=== PATIENT | female | born 1980 | race Hispanic/Latino ===

== ENCOUNTER 2019-03-18 19:35 | Emergency (ER) | payer SELFPAY ==
[2019-03-18] MEDS ORDERED: ASPIRIN 325 MG TABLET ONE (20:04)
[2019-03-18] MEDS ORDERED: NITROGLYCERIN 0.4 MG SL TAB SL ONE (20:05)
[2019-03-18 20:17] LABS: HCG,QUAL RESULT NEGATIVE (NEGATIVE)
[2019-03-18 20:18] LABS: AMPHET/METH SCREEN,URINE NEGATIVE (NEGATIVE); BARBITURATE SCREEN, URINE NEGATIVE (NEGATIVE); BENZODIAZEPINES SCREEN,URINE NEGATIVE (NEGATIVE); CANNABINOID SCREEN,URINE NEGATIVE (NEGATIVE); COCAINE SCREEN,URINE NEGATIVE (NEGATIVE); OPIATE SCREEN,URINE NEGATIVE (NEGATIVE); PHENCYCLIDINE SCREEN,URINE NEGATIVE (NEGATIVE)
[2019-03-18 20:25] LABS: BASOPHILS % (AUTO) 0.9 % (0.0-5.0); EOSINOPHILS % (AUTO) 2.5 % (0.0-8.0); LYMPHOCYTES % (AUTO) 37.8 % (21.0-51.0); MEAN CORPUSCULAR HEMOGLOBIN 26.6 pg (27.0-33.0); MEAN CORPUSCULAR HGB CONC 32.5 g/dL (32.0-36.0); MEAN CORPUSCULAR VOLUME 81.7 fL (79-99); MONOCYTES % (AUTO) 6.9 % (3.0-13.0); NEUTROPHILS % (AUTO) 51.9 % (40.0-77.0); PLATELET COUNT (AUTO) 344 K/uL (130-400); RED BLOOD CELL COUNT(AUTO) 4.65 MIL/uL (4.00-5.50); RED CELL DISTRIBUTION WIDTH 14.7 % (11.0-15.5)
[2019-03-18 20:39] LABS: CREATININE 0.8 mg/dL (0.5-1.5); POTASSIUM 3.8 mmol/L (3.5-5.1)
[2019-03-18 20:43] LABS: INR 0.89 (0.85-1.15); PROTHROMBIN TIME 9.4 SEC (9.6-11.6)
[2019-03-18 20:44] LABS: ALBUMIN 3.6 g/dL (3.5-5.0); BILIRUBIN,TOTAL 0.6 mg/dL (0.2-1.0); TOTAL PROTEIN, SERUM 8.1 g/dL (6.0-8.3)
== END 2019-03-18 23:00 ==
LOC: EDH 19:35
DX: R07.89 Other chest pain (principal); E66.9 Obesity, unspecified; Z98.890 Other specified postprocedural states
CPT/HCPCS: 36415; 71045; 80053; 80305; 81025; 82550; 83880; 84484; 85025; 85378; 85610; 85730; 93005

== ENCOUNTER 2021-09-18 13:20 | Observation (INO) | payer OTHER ==
[~2021-09-18] VITALS: Ht 162.6 cm; Wt 115.9 kg
[2021-09-18 13:50] LABS: BASOPHILS % (AUTO) 0.6 % (0.0-5.0); EOSINOPHILS % (AUTO) 3.2 % (0.0-8.0); HEMATOCRIT 42.3 % (36-48); LYMPHOCYTES % (AUTO) 35.9 % (21.0-51.0); MEAN CORPUSCULAR HEMOGLOBIN 26.4 pg (27.0-33.0); MEAN CORPUSCULAR HGB CONC 31.7 g/dL (32.0-36.0); MEAN CORPUSCULAR VOLUME 83.3 fL (79-99); MONOCYTES % (AUTO) 7.3 % (3.0-13.0); NEUTROPHILS % (AUTO) 52.5 % (40.0-77.0); PLATELET COUNT (AUTO) 363 K/uL (130-400); RED BLOOD CELL COUNT(AUTO) 5.08 MIL/uL (4.00-5.50); RED CELL DISTRIBUTION WIDTH 15.9 % (11.0-15.5); WHITE BLOOD COUNT (AUTO) 10.8 K/uL (4.8-10.8)
[2021-09-18 13:59] LABS: CREATININE 0.6 mg/dL (0.5-1.5); POTASSIUM 4.3 mmol/L (3.5-5.1)
[2021-09-18 14:03] LABS: ALBUMIN 3.7 g/dL (3.5-5.0); BILIRUBIN,TOTAL 0.9 mg/dL (0.2-1.0)
[2021-09-18 14:04] LABS: AMPHET/METH SCREEN,URINE NEGATIVE (NEGATIVE); BARBITURATE SCREEN, URINE NEGATIVE (NEGATIVE); BENZODIAZEPINES SCREEN,URINE NEGATIVE (NEGATIVE); CANNABINOID SCREEN,URINE NEGATIVE (NEGATIVE); COCAINE SCREEN,URINE NEGATIVE (NEGATIVE); OPIATE SCREEN,URINE NEGATIVE (NEGATIVE); PHENCYCLIDINE SCREEN,URINE NEGATIVE (NEGATIVE)
[2021-09-18 14:11] LABS: HCG,QUAL RESULT NEGATIVE (NEGATIVE)
[2021-09-18] MEDS ORDERED: NITROGLYCERIN 1GM OINT 1 INCH/1GM TD ONE ×2 (14:50→15:00)
[2021-09-18] MEDS ORDERED: ASPIRIN 81MG CHEW TAB ONE (14:50)
[2021-09-18] MEDS ORDERED: KETOROLAC 15MG/ML VIAL (15MG/ML) ONE (14:50)
[2021-09-18] MEDS ORDERED: ASPIRIN 81MG CHEW TAB PO ONE (15:00)
[2021-09-18] MEDS ORDERED: KETOROLAC 15MG/ML VIAL (15MG/ML) IV ONE (15:00)
[2021-09-18] MEDS ORDERED: 0.9%NACL 1000ML 1,000 ML IV ONE (15:00)
[2021-09-18] MEDS ORDERED: IOHEXOL-350 75 ML VIAL IV ONE (15:30)
[2021-09-18] MEDS ORDERED: ACETAMINOPHEN 325 MG TAB ONE (19:54)
[2021-09-18] MEDS ORDERED: METOPROLOL TARTRATE 25 MG TAB ONE (19:54)
[2021-09-18] MEDS ORDERED: ACETAMINOPHEN 325 MG TAB PO PRN (20:00)
[2021-09-18] MEDS: METOPROLOL TARTRATE 25 MG TAB PO SCH (21:00)
[2021-09-18] MEDS: ENOXAPARIN SODIUM 120 MG/0.8ML SQ SCH (22:08)
[2021-09-19 03:35] VITALS: BP 142/90
[2021-09-19] MEDS ORDERED: METF-444 PO (03:51)
[2021-09-19] MEDS ORDERED: GEMF600T89 PO (03:51)
[2021-09-19 07:00] VITALS: BP 137/67
[2021-09-19 07:57] LABS: BASOPHILS % (AUTO) 0.4 % (0.0-5.0); EOSINOPHILS % (AUTO) 3.3 % (0.0-8.0); HEMATOCRIT 34.8 % (36-48); LYMPHOCYTES % (AUTO) 23.6 % (21.0-51.0); MEAN CORPUSCULAR HGB CONC 30.5 g/dL (32.0-36.0); MEAN CORPUSCULAR VOLUME 85.5 fL (79-99); MONOCYTES % (AUTO) 6.8 % (3.0-13.0); NEUTROPHILS % (AUTO) 65.4 % (40.0-77.0); PLATELET COUNT (AUTO) 281 K/uL (130-400); RED BLOOD CELL COUNT(AUTO) 4.07 MIL/uL (4.00-5.50); RED CELL DISTRIBUTION WIDTH 15.8 % (11.0-15.5); WHITE BLOOD COUNT (AUTO) 10.8 K/uL (4.8-10.8)
[2021-09-19 08:30] LABS: BILIRUBIN,TOTAL 0.7 mg/dL (0.2-1.0); CREATININE 0.7 mg/dL (0.5-1.5); TOTAL PROTEIN, SERUM 6.7 g/dL (6.0-8.3)
[2021-09-19] MEDS ORDERED: IOHEXOL 350 MG/ML 100ML INFUS..BTL IV ONE (09:45)
[2021-09-19] MEDS ORDERED: METOPROLOL TARTRATE 1 MG/ML 5ML VIAL IV ONE ×2 (10:27→10:35)
[2021-09-19 11:00] VITALS: BP 131/77
[2021-09-19] MEDS: METOPROLOL TARTRATE 25 MG TAB PO SCH ×2 (11:51→20:00)
[2021-09-19] MEDS: ASPIRIN 81 MG EC TAB PO SCH (11:52)
[2021-09-19] MEDS: ENOXAPARIN SODIUM 120 MG/0.8ML SQ SCH ×2 (11:52→20:01)
[2021-09-19] MEDS: CLOPIDOGREL 75MG TAB PO SCH (11:52)
[2021-09-19 16:00] VITALS: BP 140/94
[2021-09-19 19:46] VITALS: BP 131/86
[2021-09-19 23:31] VITALS: BP 125/77
[2021-09-20 03:27] VITALS: BP 125/72
[2021-09-20 03:46] LABS: CHOLESTEROL 132 mg/dL (<200); HDL CHOLESTEROL 29 mg/dL (35-85); LDL DIRECT 48 mg/dL (0-99); TRIGLYCERIDES 494 mg/dL (30-200)
[2021-09-20 08:19] VITALS: BP 126/75
[2021-09-20] MEDS: METOPROLOL TARTRATE 25 MG TAB PO SCH (09:33)
[2021-09-20] MEDS: CLOPIDOGREL 75MG TAB PO SCH (09:34)
[2021-09-20] MEDS: ASPIRIN 81 MG EC TAB PO SCH (09:34)
[2021-09-20] MEDS: ENOXAPARIN SODIUM 120 MG/0.8ML SQ SCH (09:34)
== END 2021-09-20 10:50 | disposition home or self-care (01) ==
LOC: EDH 13:20 → EDHIP 16:51 → 4CH 09-19 03:25
PROVIDERS: ADMIT Internal Medicine; ATTEND Internal Medicine
DX: I20.0 Unstable angina (principal); R07.89 Other chest pain; I16.0 Hypertensive urgency; I10 Essential (primary) hypertension; E11.9 Type 2 diabetes mellitus without complications; E78.5 Hyperlipidemia, unspecified; Z90.49 Acquired absence of other specified parts of digestive tract; Z98.891 History of uterine scar from previous surgery; Z79.899 Other long term (current) drug therapy; Z98.890 Other specified postprocedural states; Z79.82 Long term (current) use of aspirin
CPT/HCPCS: 36415 ×3; 71045; 71275; 75574; 80053 ×2; 80061; 80305; 81025; 82550 ×3; 83874 ×3; 84484 ×4; 85025 ×2; 85378; 93005; 96360; 96372 ×3; 99291; G0378 ×42; J1650 ×4; J1885; J3490 ×2; Q9967 ×2

== ENCOUNTER 2021-12-09 23:36 | Emergency (ER) | payer OTHER ==
[~2021-12-09] VITALS: Ht 162.6 cm; Wt 108.0 kg
[~2021-12-09 23:36] MED LIST: GEMF600T89 PO; METF-444 PO
[2021-12-10 00:11] LABS: BASOPHILS % (AUTO) 0.3 % (0.0-5.0); EOSINOPHILS % (AUTO) 2.6 % (0.0-8.0); HEMATOCRIT 38.2 % (36-48); LYMPHOCYTES % (AUTO) 29.7 % (21.0-51.0); MEAN CORPUSCULAR HEMOGLOBIN 25.5 pg (27.0-33.0); MEAN CORPUSCULAR HGB CONC 31.4 g/dL (32.0-36.0); MEAN CORPUSCULAR VOLUME 81.3 fL (79-99); MONOCYTES % (AUTO) 6.1 % (3.0-13.0); PLATELET COUNT (AUTO) 331 K/uL (130-400); WHITE BLOOD COUNT (AUTO) 10.9 K/uL (4.8-10.8)
[2021-12-10 00:18] LABS: CREATININE 0.8 mg/dL (0.5-1.5); POTASSIUM 4.2 mmol/L (3.5-5.1)
[2021-12-10 00:24] LABS: APPEARANCE,URINE CLEAR (CLEAR); BILIRUBIN,URINE NEGATIVE (NEGATIVE); COLOR,URINE YELLOW (YELLOW); GLUCOSE, URINE (UA) NEGATIVE (NEGATIVE); KETONES,URINE NEGATIVE (NEGATIVE); LEUKOCYTE ESTERASE ,URINE NEGATIVE (NEGATIVE); NITRATE,URINE NEGATIVE (NEGATIVE); OCCULT BLOOD,URINE TRACE-INTACT (NEGATIVE); PROTEIN,URINE NEGATIVE (NEGATIVE); UROBILINOGEN,URINE 0.2 mg/dL (0.2-1.0)
[2021-12-10 00:25] LABS: ALBUMIN 3.5 g/dL (3.5-5.0)
[2021-12-10] MEDS ORDERED: KETOROLAC 15MG/ML VIAL (15MG/ML) IV ONE (00:30)
[2021-12-10] MEDS ORDERED: MORPHINE 2 MG SYG IVP ONE (00:30)
[2021-12-10] MEDS ORDERED: ONDANSETRON 4MG INJ IVP ONE (00:30)
[2021-12-10 01:01] LABS: BACTERIA,URINE None Seen /HPF (None Seen); RBC,URINE 0-1 /HPF (0-1); SQUAMOUS EPITHELIAL CELL,UR Rare /HPF (0-2); WBC,URINE None Seen /HPF (0-1)
[2021-12-10 01:10] VITALS: BP 153/83
[2021-12-10] MEDS ORDERED: IBUP-2070 PO (02:31)
[2021-12-10] MEDS ORDERED: ACET-2079 PO (02:31)
== END 2021-12-10 02:50 | disposition home or self-care (01) ==
LOC: EDH 23:36
DX: N83.202 Unspecified ovarian cyst, left side (principal); E11.9 Type 2 diabetes mellitus without complications; I10 Essential (primary) hypertension; Z79.1 Long term (current) use of non-steroidal anti-inflammatories (NSAID); Z79.84 Long term (current) use of oral hypoglycemic drugs; Z90.49 Acquired absence of other specified parts of digestive tract
CPT/HCPCS: 99284; 84484; 80053; 83690; 85025; 81001; 36415; 74176; 96374; 76830; 96375; J2405; J1885

== ENCOUNTER 2021-12-20 06:19 | Day surgery (SDC) | payer OTHER ==
[2021-12-15 09:56] LABS: BASOPHILS % (AUTO) 0.4 % (0.0-5.0); EOSINOPHILS % (AUTO) 2.9 % (0.0-8.0); HEMATOCRIT 37.8 % (36-48); LYMPHOCYTES % (AUTO) 34.8 % (21.0-51.0); MEAN CORPUSCULAR HEMOGLOBIN 25.2 pg (27.0-33.0); MEAN CORPUSCULAR HGB CONC 30.7 g/dL (32.0-36.0); MONOCYTES % (AUTO) 5.7 % (3.0-13.0); PLATELET COUNT (AUTO) 381 K/uL (130-400); RED BLOOD CELL COUNT(AUTO) 4.61 MIL/uL (4.00-5.50); RED CELL DISTRIBUTION WIDTH 14.3 % (11.0-15.5)
[2021-12-19 09:25] VITALS: BP 141/79
[2021-12-20] VITALS (19 sets, daily range): BP systolic 109–147; BP diastolic 62–82
[~2021-12-20] VITALS: Ht 162.6 cm; Wt 107.8 kg
[~2021-12-20 06:19] MED LIST changes: +CELE-84 PO; -GEMF600T89 PO; -METF-444 PO; +ROSU20TA23 PO; +SEMA1PEN3 SQ
[2021-12-20] MEDS ORDERED: DEXAMETHASONE SOD PHOSPHATE 4 MG/ML 5ML VIAL ONE (07:51)
[2021-12-20] MEDS ORDERED: 0.9%NACL 1000ML 1,000 ML IV ONE (07:51)
[2021-12-20] MEDS ORDERED: METRONIDAZOLE 500MG/100ML BAG 100 ML ONE (07:51)
[2021-12-20] MEDS ORDERED: SCOPOLAMINE HYDROBROMIDE 1 EACH ADH..PATCH TD ONE (07:51)
[2021-12-20] MEDS: CEFAZOLIN SODIUM 1 GM VIAL ONE ×2 (08:24→11:49)
[2021-12-20] MEDS ORDERED: ONDANSETRON 4MG INJ ONE ×2 (10:48→16:19)
[2021-12-20] MEDS ORDERED: PROPOFOL 10 MG/ML 20ML VIAL IV ONE (10:48)
[2021-12-20] MEDS ORDERED: MIDAZOLAM HCL 1 MG/ML 2ML VIAL ONE (10:49)
[2021-12-20] MEDS ORDERED: ROCURONIUM 10MG/1ML SYR 10 MG/ML ML ONE ×2 (10:49→11:46)
[2021-12-20] MEDS ORDERED: FENTANYL CITRATE PF 50 MCG/1 ML 2ML VIAL ONE ×2 (10:49→14:51)
[2021-12-20] MEDS ORDERED: BUPIVACAINE LIPOSOME/PF 266 MG/20 ML ML IJ SCH (11:00)
[2021-12-20] MEDS ORDERED: PHENYLEPHRINE HCL 10 MG/ML 1ML VIAL IV ONE (12:15)
[2021-12-20] MEDS ORDERED: EPHEDRINE SULFATE 50 MG/ML AMPULE ONE (12:16)
[2021-12-20] MEDS ORDERED: KETOROLAC 30MG VIAL (30MG/ML) ONE (14:46)
[2021-12-20] MEDS ORDERED: GLYCOPYRROLATE 1 MG/5 ML SYRINGE ONE (14:46)
[2021-12-20] MEDS ORDERED: NEOSTIGMINE 5MG/5ML SYR IV ONE (14:50)
[2021-12-20] MEDS ORDERED: MORPHINE 10MG VIAL ONE (16:19)
[2021-12-20] MEDS ORDERED: ACETAMINOPHEN 500 MG TABLET ONE (16:19)
== END 2021-12-20 18:00 | disposition home or self-care (01) ==
LOC: DAH 06:19
PROVIDERS: ATTEND Obstetrics & Gynecology
DX: R10.2 Pelvic and perineal pain (principal); D27.1 Benign neoplasm of left ovary; K66.0 Peritoneal adhesions (postprocedural) (postinfection); E66.01 Morbid (severe) obesity due to excess calories; E11.9 Type 2 diabetes mellitus without complications; E78.00 Pure hypercholesterolemia, unspecified; Z79.899 Other long term (current) drug therapy; Z79.01 Long term (current) use of anticoagulants; Z80.8 Family history of malignant neoplasm of other organs or systems; Z98.890 Other specified postprocedural states; Z98.891 History of uterine scar from previous surgery; Z90.49 Acquired absence of other specified parts of digestive tract; Z68.43 Body mass index [BMI] 50.0-59.9, adult
CPT/HCPCS: 58662; S2900; 36415; 82948; 84703; 85025; 86850; 86900; 86901; 87426; A4344; C9290; J0690; J1100; J1885; J2250; J2270; J2370; J2405; J2704; J2710; J3010; J3490; J7030; J7120

== ENCOUNTER 2022-09-19 18:16 | Emergency (ER) | payer OTHER ==
[~2022-09-19] VITALS: Ht 160 cm; Wt 104.8 kg
[~2022-09-19 18:16] MED LIST changes: -CELE-84 PO
[2022-09-19 19:01] LABS: BASOPHILS % (AUTO) 0.2 % (0.0-5.0); HEMATOCRIT 37.9 % (36-48); LYMPHOCYTES % (AUTO) 12.5 % (21.0-51.0); MEAN CORPUSCULAR HEMOGLOBIN 25.8 pg (27.0-33.0); MEAN CORPUSCULAR HGB CONC 31.4 g/dL (32.0-36.0); MEAN CORPUSCULAR VOLUME 82.2 fL (79-99); MONOCYTES % (AUTO) 0.7 % (3.0-13.0); NEUTROPHILS % (AUTO) 85.9 % (40.0-77.0); PLATELET COUNT (AUTO) 370 K/uL (130-400); RED BLOOD CELL COUNT(AUTO) 4.61 MIL/uL (4.00-5.50); RED CELL DISTRIBUTION WIDTH 14.6 % (11.0-15.5); WHITE BLOOD COUNT (AUTO) 12.1 K/uL (4.8-10.8)
[2022-09-19 19:13] LABS: CREATININE 0.7 mg/dL (0.5-1.5); POTASSIUM 4.2 mmol/L (3.5-5.1)
[2022-09-19 19:20] LABS: ALBUMIN 3.7 g/dL (3.5-5.0); TOTAL PROTEIN, SERUM 8.3 g/dL (6.0-8.3)
[2022-09-19 23:29] LABS: APPEARANCE,URINE CLEAR (CLEAR); BILIRUBIN,URINE NEGATIVE (NEGATIVE); COLOR,URINE LIGHT-YELLOW (YELLOW); GLUCOSE, URINE (UA) 300 mg/dL (NEGATIVE); KETONES,URINE 5 mg/dL (NEGATIVE); LEUKOCYTE ESTERASE ,URINE 250 Leu/uL (NEGATIVE); NITRATE,URINE NEGATIVE (NEGATIVE); OCCULT BLOOD,URINE MODERATE (NEGATIVE); PROTEIN,URINE NEGATIVE (NEGATIVE); UROBILINOGEN,URINE 0.2 mg/dL (0.2-1.0)
[2022-09-19 23:32] LABS: MUCUS,URINE RARE LPF (None Seen); SQUAMOUS EPITHELIAL CELL,UR MANY /HPF (0-2)
[2022-09-19 23:42] LABS: MAGNESIUM 2.1 mg/dL (1.80-2.40); THYROID STIMULATING HORMONE 0.49 uIU/mL (0.36-3.74)
[2022-09-20] MEDS ORDERED: CEFTRIAXONE 1G VIAL IVPB ONE
[2022-09-20 00:53] VITALS: BP 125/70
== END 2022-09-20 00:54 | disposition home or self-care (01) ==
LOC: EDH 18:16
DX: R07.89 Other chest pain (principal); R00.2 Palpitations; R03.0 Elevated blood-pressure reading, without diagnosis of hypertension; R06.02 Shortness of breath; E78.00 Pure hypercholesterolemia, unspecified; Z90.49 Acquired absence of other specified parts of digestive tract; Z90.722 Acquired absence of ovaries, bilateral; Z98.890 Other specified postprocedural states
CPT/HCPCS: 99285; 71045; 84443; 83735; 84484 ×2; 80053; 85025; 87088; 81001; 36415; 93005; 96365; J0696

== ENCOUNTER 2024-05-30 21:51 | Emergency (ER) | payer BC ==
[~2024-05-30] VITALS: Ht 162.6 cm; Wt 102.1 kg
[~2024-05-30 21:51] MED LIST changes: +AMOX1TAB16 PO; +AZEL23SP NS
--- NOTE | 2024-05-30 21:57 | NUR ---
UA CUP PROVIDED
[2024-05-30 22:23] LABS: BASOPHILS # (AUTO) 0.05 K/uL (0.00-0.20); BASOPHILS % (AUTO) 0.5 % (0.0-5.0); EOSINOPHILS # (AUTO) 0.22 K/uL (0.00-0.70); EOSINOPHILS % (AUTO) 2.3 % (0.0-8.0); IMMATURE GRANULOCYTE ABSOLUTE 0.03 K/uL (0-1); LYMPHOCYTES # (AUTO) 3.6 K/uL (1.0-4.8); LYMPHOCYTES % (AUTO) 37.9 % (21.0-51.0); MEAN CORPUSCULAR HEMOGLOBIN 26.5 pg (27.0-33.0); MEAN CORPUSCULAR HGB CONC 30.8 g/dL (32.0-36.0); MEAN CORPUSCULAR VOLUME 86.3 fL (79-99); MONOCYTES # (AUTO) 0.7 K/uL (0.1-1.0); MONOCYTES % (AUTO) 6.8 % (3.0-13.0); NEUTROPHILS % (AUTO) 52.2 % (40.0-77.0); PLATELET COUNT (AUTO) 385 K/uL (130-400); RED BLOOD CELL COUNT(AUTO) 4.52 MIL/uL (4.00-5.50); RED CELL DISTRIBUTION WIDTH 13.7 % (11.0-15.5); WHITE BLOOD COUNT (AUTO) 9.6 K/uL (4.8-10.8)
[2024-05-30 22:31] LABS: CREATININE 0.6 mg/dL (0.5-1.0); POTASSIUM 3.7 mmol/L (3.5-5.1)
[2024-05-30 22:35] LABS: APPEARANCE,URINE CLOUDY (CLEAR); BILIRUBIN,URINE NEGATIVE (NEGATIVE); COLOR,URINE YELLOW (YELLOW); GLUCOSE, URINE (UA) NEGATIVE (NEGATIVE); KETONES,URINE NEGATIVE (NEGATIVE); LEUKOCYTE ESTERASE ,URINE 500 Leu/uL (NEGATIVE); NITRATE,URINE NEGATIVE (NEGATIVE); OCCULT BLOOD,URINE SMALL (NEGATIVE); PH,URINE 5.5 (5.0-8.0); PROTEIN,URINE 20 mg/dL (NEGATIVE); UROBILINOGEN,URINE 0.2 mg/dL (0.2-1.0)
[2024-05-30 22:36] LABS: ADD UA MICROSCOPIC YES
[2024-05-30 22:37] LABS: ALBUMIN 3.4 g/dL (3.5-5.0); BACTERIA,URINE MOD /HPF (None Seen); BILIRUBIN,DIRECT 0.1 mg/dL (0.0-0.3); BILIRUBIN,TOTAL 0.6 mg/dL (0.2-1.0); CALCIUM OXALATE CRYSTALS,UR MOD /LPF (None Seen); MUCUS,URINE RARE LPF (None Seen); SQUAMOUS EPITHELIAL CELL,UR MOD /HPF (0-2); TOTAL PROTEIN, SERUM 7.6 g/dL (6.0-8.3)
--- NOTE | 2024-05-31 00:08 | HMCIMG ---
CT ABDOMEN/PELVIS W/O CONTRAST HISTORY: Abdominal pain COMPARISON: 2 12/11/2019 TECHNIQUE: Multiple sequential axial images of the abdomen and pelvis were obtained from the dome of the diaphragm through symphysis pubis. Patient was not given contrast through intravenous route. Oral contrast was not given. FINDINGS: No pleural effusion is seen bilaterally. There is no evidence of parenchymal disease or pulmonary nodule of the visualized lower lungs. Degenerative changes of the thoracolumbar spine are present. The heart is not enlarged. Liver is enlarged measuring 18 cm. Postcholecystectomy changes are The liver, spleen, adrenal glands and pancreas are unremarkable. There is no evidence of hydronephrosis bilaterally. No evidence of renal stone is seen. Fecal material is seen in the colon. There are normal size retroperitoneal and mesenteric lymph nodes. No ascites is seen. No CT evidence of acute appendicitis is seen. Clinical correlation is recommended Pelvic sidewalls are symmetric bilaterally. Bladder is well distended without wall thickening. IMPRESSION: 1. No acute findings. CT was performed with one or more following dose reduction techniques: automated exposure control, adjustment of the mA and kv according to patient's size, or use of a iterative reconstruction technique.
[2024-05-31] MEDS ORDERED: MACR100 PO (00:16)
--- NOTE | 2024-05-31 00:16 | ERN ---
General Chief Complaint: Abdominal Pain Stated Complaint: ABDOMINAL PAIN Time Seen by MD: 22:42 Time Seen by Midlevel: 22:42 Source: patient History of Present Illness Allergies: Coded Allergies: No Known Allergies (Unverified Allergy, Unknown, 03/23/19) Home Meds Active Scripts Nitrofurantoin/Nitrofuran Mac (Macrobid) 100 Mg Cap, 1 CAP PO BID for 5 Days, #10 CAP 0 Refills Prov:FRITZ DURANT 05/31/24 Azelastine/Fluticasone (Dymista Nasal [place]) 137 Mcg-50 Mcg/[place].pump, 2 SPRAY NS BID, #23 GM Prov:ANMOL WILLS 08/17/23 Amoxicillin/Potassium Clav (Amox Tr-K Clv 875-125 mg Tab) 875 Mg-125 Mg Tablet, 1 EACH PO BID for 10 Days, #20 TAB 0 Refills Prov:ANMOL WILLS 08/17/23 Reported Medications Rosuvastatin Calcium (Crestor) 20 Mg Tablet, 20 MG PO HS, TAB 12/19/21 Semaglutide (Ozempic) 1 Mg/0.75 Ml Pen.injctr, 0.5 MG SQ QWEEK 12/19/21 Past Medical History Past Medical History: No Pertinent History, High Cholesterol, Hypertension Medical History Other: PREDIABETES Past Surgical History: Cholecystectomy, Surgical History Other: REMOVAL OF OVARIES AND FALLOPIAN TUBES Social History Social History: Negative, Lives with family, Other Female( History) History: Not Applicable Results Laboratory and Microbiology Lab and Micro Result Laboratory Tests Test 05/30/24 22:11 White Blood Count 9.6 K/uL (4.8-10.8) Red Blood Count 4.52 MIL/uL (4.00-5.50) Hemoglobin 12.0 g/dL (12.0-16.0) Hematocrit 39.0 % (36-48) Mean Corpuscular Volume 86.3 fL (79-99) Mean Corpuscular Hemoglobin 26.5 pg (27.0-33.0) L Mean Corpuscular Hemoglobin Concent 30.8 g/dL (32.0-36.0) L Red Cell Distribution Width 13.7 % (11.0-15.5) Platelet Count 385 K/uL (130-400) Mean Platelet Volume 8.5 fL (7.5-10.5) Immature Granulocyte % (Auto) 0.3 % (0-1) Neutrophils (%) (Auto) 52.2 % (40.0-77.0) Lymphocytes (%) (Auto) 37.9 % (21.0-51.0) Monocytes (%) (Auto) 6.8 % (3.0-13.0) Eosinophils (%) (Auto) 2.3 % (0.0-8.0) Basophils (%) (Auto) 0.5 % (0.0-5.0) Neutrophils # (Auto) 5.0 K/uL (1.8-7.7) Lymphocytes # (Auto) 3.6 K/uL (1.0-4.8) Monocytes # (Auto) 0.7 K/uL (0.1-1.0) Eosinophils # (Auto) 0.22 K/uL (0.00-0.70) Basophils # (Auto) 0.05 K/uL (0.00-0.20) Absolute Immature Granulocyte (auto 0.03 K/uL (0-1) Nucleated Red Blood Cells 0.0 % (0.0-0.19) Red Blood Cell Morphology See comments Urine Color YELLOW (YELLOW) Urine Appearance CLOUDY (CLEAR) H Urine pH 5.5 (5.0-8.0) Urine Specific [place] 1.034 (1.001-1.031) Urine Protein 20 mg/dL (NEGATIVE) H Urine Glucose (UA) NEGATIVE mg/dL (NEGATIVE) Urine Ketones NEGATIVE mg/dL (NEGATIVE) Urine Occult Blood SMALL (NEGATIVE) H Urine Nitrate NEGATIVE (NEGATIVE) Urine Bilirubin NEGATIVE mg/dL (NEGATIVE) Urine Urobilinogen 0.2 mg/dL (0.2-1.0) Urine Leukocyte Esterase 500 Sandeep/uL (NEGATIVE) H Urine RBC 2-5 /HPF (0-1) H Urine WBC 11-25 /HPF (0-1) H Urine Squamous Epithelial Cells MOD /HPF (0-2) Urine Calcium Oxalate Crystals MOD /LPF (None Seen) Urine Bacteria MOD /HPF (None Seen) Sodium Level 139 mmol/L (136-145) Potassium Level 3.7 mmol/L (3.5-5.1) Chloride Level 103 mmol/L (101-111) Carbon Dioxide Level 30 mmol/L (21-32) Blood Urea Nitrogen 11 mg/dL (7-18) Creatinine 0.6 mg/dL (0.5-1.0) Glomerular Filtration Rate Calc 112 mL/min (>90) Random Glucose 117 mg/dL (70-105) H Total Calcium 9.3 mg/dL (8.5-10.1) Total Bilirubin 0.6 mg/dL (0.2-1.0) Direct Bilirubin 0.1 mg/dL (0.0-0.3) Aspartate Amino Transf (AST/SGOT) 9 U/L (10-37) L Alanine Aminotransferase (ALT/SGPT) 16 U/L (12-78) Alkaline Phosphatase 96 U/L (50-136) Total Protein 7.6 g/dL (6.0-8.3) Albumin 3.4 g/dL (3.5-5.0) L Lipase 76 U/L (16-77) Serum Test, Qualitative NEGATIVE (NEGATIVE) ED Course Orders Procedure Category Date Status Time Urinalysis Profile LAB 05/30/24 Complete 22:01 Cbc With Differential LAB 05/30/24 Complete 22:01 Basic Metabolic Panel LAB 05/30/24 Complete 22:01 Lipase LAB 05/30/24 Complete 22:01 Hepatic Function Panel LAB 05/30/24 Complete 22:01 Testing, LAB 05/30/24 Complete Serum Hcg 22:01 Culture Urine GREGORIO 05/30/24 In Process 22:36 Ct Abdomen/Pelvis W/O CT 05/30/24 Resulted Contrast 23:02 Vital Signs Date Time Temp Pulse Resp B/P (MAP) Pulse Ox O2 Delivery O2 Flow Rate FiO2 05/31/24 00:28 97.5 67 16 146/82 100 Room Air* 0 21 05/30/24 21:52 97.9 66 16 153/86 100 Room Air DX & DISP Disposition: Discharge Departure Impression: Primary Impression: Urinary tract infection Additional Impression: Left lower quadrant pain Condition: Stable Scripts Nitrofurantoin/Nitrofuran Mac (Macrobid) 100 Mg Cap 1 CAP PO BID for 5 Days, #10 CAP 0 Refills Prov: FRITZ DURANT 05/31/24 Additional Instructions: Your blood work today is unremarkable. Your CT scan of the abdomen/pelvis does not show any acute abnormality. Your symptoms are most likely related to urinary tract infection. I have given you a prescription for oral antibiotics. Please follow up with your primary care doctor for repeat evaluation in 2-3 days. Return to the ER for any new or worsening symptoms Referrals: FRITZ MCCANN MD (PCP) Time of Disposition: 00:14 I have reviewed the case, and I agree with, Diagnosis and Plan I performed the substantive portion of the visit. I have reviewed and person ally made and approve the management plan that is documented in the note by myself or the [facility]. I acknowledge for responsibility for the patient's management plan. FRITZ DURANT May 31, 2024 00:16
[2024-05-31 00:28] VITALS: BP 146/82; PULSE 67; RESP 16; TEMP 97.6; O2SAT 100
== END 2024-05-31 00:30 | disposition home or self-care (01) ==
LOC: EDH 21:51
DX: N39.0 Urinary tract infection, site not specified (principal); E78.00 Pure hypercholesterolemia, unspecified; I10 Essential (primary) hypertension; Z79.899 Other long term (current) drug therapy; Z90.49 Acquired absence of other specified parts of digestive tract; Z90.722 Acquired absence of ovaries, bilateral
CPT/HCPCS: 36415; 74176; 80048; 80076; 81001; 83690; 84703; 85025; 87086; 99284